=== PATIENT | female | born 1985 | race Caucasian/White ===

== ENCOUNTER 2018-10-14 10:13 | Inpatient (IN) | payer OTHER ==
[2018-10-09 14:35] VITALS: BMI 40.4
[~2018-10-14 10:13] MED LIST: ONDANSETRON 4 MG/2 ML VIAL IVPUSH PRN
[2018-10-14] MEDS ORDERED: DEXAMETHASONE SOD PHOSPHATE/PF 10 MG/ML SDV ONE ×2 (11:45→11:55)
[2018-10-14] MEDS ORDERED: BUPIVACAINE HCL/PF (5 MG/ML) 30 ML VIAL IJ ONE (11:46)
[2018-10-14] MEDS ORDERED: MIDAZOLAM HCL 2 MG/2 ML SINGLE DOSE VIAL ONE (11:46)
[2018-10-14] MEDS ORDERED: ROCURONIUM BROMIDE 50 MG/5 ML VIAL ONE (12:27)
[2018-10-14] MEDS ORDERED: PROPOFOL 20 ML ONE (12:27)
[2018-10-14] MEDS ORDERED: BUPIVACAINE HCL/PF 2.5 MG/ML - 30 ML VIAL IJ ONE (12:28)
[2018-10-14] MEDS ORDERED: fentaNYL CITRATE 250 MCG/5 ML VIAL ONE (12:30)
[2018-10-14] MEDS ORDERED: LIDOCAINE HCL/PF 2% SDV 5ML VIAL ONE (12:31)
[2018-10-14] MEDS ORDERED: ONDANSETRON 4 MG/2 ML VIAL ONE (12:32)
[2018-10-14] MEDS ORDERED: ceFAZolin SODIUM 1 GM VIAL ONE (12:32)
[2018-10-14] MEDS ORDERED: KETOROLAC TROMETHAMINE 30 MG/1 ML VIAL ONE (12:32)
[2018-10-14] MEDS ORDERED: DEXAMETHASONE SOD PHOSPHATE 4 MG/1 ML VIAL ONE (12:32)
--- NOTE | 2018-10-14 12:54 | HP ---
Admitting History and Physical - Admission Chief Complaint: Morbid obesity History Source: Patient Limitations to Obtaining History: No Limitations - Past Medical History ...LMP: 09/12/18 ...: No - Smoking History Smoking history: Never smoked Have you smoked in the past 12 months: No - Alcohol/Substance Use Hx Alcohol Use: No Home Medications - Allergies Allergies/Adverse Reactions: Allergies Allergy/AdvReac Type Severity Reaction Status Date / Time No Known Allergies Allergy Verified 10/14/18 10:34 - Home Medications Home Medications: Ambulatory Orders Multivitamin [One-Daily Multi-Vitamin] 1 each PO DAILY 10/09/18 Docusate Sodium [Colace -] 100 mg PO TID #90 capsule 10/14/18 Famotidine [Pepcid] 20 mg PO BID #60 tablet 10/14/18 Ondansetron [Zofran -] 8 mg PO Q6H PRN #30 tablet 10/14/18 Oxycodone HCl/Acetaminophen [Percocet 5-325 mg Tablet] 1 - 2 tab PO Q6H #28 tab MDD 4 10/14/18 Family Disease History - Family Disease History Family History: Unremarkable Review of Systems - Review of Systems Constitutional: denies: Chills, Fever Neck: reports: No Symptoms Cardiovascular: reports: No Symptoms Respiratory: reports: No Symptoms Gastrointestinal: reports: No Symptoms Neurological: reports: No Symptoms Pain Intensity: 0 Physical Examination Vital Signs: Vital Signs Temperature 98 F 10/14/18 10:58 Pulse Rate 85 10/14/18 10:58 Respiratory Rate 17 10/14/18 10:58 Blood Pressure 120/79 10/14/18 10:58 O2 Sat by Pulse Oximetry (%) Constitutional: Yes: Calm Neck: Yes: WNL Cardiovascular: Yes: WNL Respiratory: Yes: Regular Gastrointestinal: Yes: Soft, Abdomen, Obese Neurological: Yes: Alert, Oriented Problem List - Problems (1) Morbid obesity due to excess calories Code(s): E66.01 - MORBID (SEVERE) OBESITY DUE TO EXCESS CALORIES (2) BMI 40.0-44.9, adult Code(s): Z68.41 - BODY MASS INDEX (BMI) 40.0-44.9, ADULT Assessment/Plan Laparoscopic possible open vertical sleeve gastrectomy, possible liver biopsy, upper endoscopy
[2018-10-14] MEDS ORDERED: HYDROmorphone HCL/PF 1 MG/ML AMP ONE (13:29)
[2018-10-14] MEDS ORDERED: NEOSTIGMINE METHYLSULFATE 0.5 MG/ML - 10 ML MDV ONE (14:30)
[2018-10-14] MEDS ORDERED: GLYCOPYRROLATE 0.2 MG/1 ML VIAL ONE (14:31)
--- NOTE | 2018-10-14 14:42 | OP ---
Operative Note - Note: Operative Date: 10/14/18 Pre-Operative Diagnosis: Morbid obesity Operation: Diagnostic laparoscopy. Laparoscopic vertical sleeve gastrectomy. Laparoscopic wedge liver biopsy Post-Operative Diagnosis: Same as Pre-op (as well as hepatomegaly) Surgeon: Pranay Hinojosa Personal Fitness Manager: Mustapha Waldrop Anesthesia: General Specimens Removed: Greater curvature of stomach. Liver biopsy Estimated Blood Loss (mls): 50 Drains & Tubes with Location: 36 fr bougie Operative Report Dictated: Yes
[2018-10-14] MEDS: ACETAMINOPHEN 1000 MG/100 ML VIAL (NON FORMULARY) IVPB SCH ×3 (14:50→21:42)
[2018-10-14] MEDS: METOCLOPRAMIDE HCL INJECTION 10 MG/2 ML VIAL IVPUSH SCH ×3 (14:55→21:44)
[2018-10-14] MEDS ORDERED: ACETAMINOPHEN 1000 MG/100 ML VIAL (NON FORMULARY) IVPB ONE (15:00)
[2018-10-14 15:17] LABS: HEMATOCRIT 38.8 % (32.4-45.2); HEMOGLOBIN 12.9 GM/dl (10.7-15.3); MCH 29.7 pg (25.7-33.7); MCHC 33.2 g/dl (32.0-36.0); MEAN CELL VOLUME 89.4 fl (80-96); MEAN PLT VOLUME 8.4 fl (7.5-11.1); PLATELET COUNT 362 K/MM3 (134-434); RBC 4.34 M/mm3 (3.60-5.2); RDW 13.4 % (11.6-15.6); WHITE BLOOD COUNT 19.5 K/mm3 (4.0-10.8)
[2018-10-14 15:22] LABS: ALBUMIN 3.8 g/dl (3.4-5.0); BILIRUBIN,TOTAL 0.5 mg/dl (0.2-1); CREATININE 0.7 mg/dl (0.55-1.3); POTASSIUM 4.3 mmol/L (3.5-5.1); TOT PROT 7.6 g/dl (6.4-8.2)
[2018-10-14] MEDS: SODIUM CHLORIDE 1,000 ML IV SCH (16:00)
[2018-10-14] MEDS: ONDANSETRON 4 MG/2 ML VIAL IVPUSH SCH ×3 (16:37→21:44)
[2018-10-14] MEDS: FAMOTIDINE 20 MG/50 ML IVPB 20 MG/50 ML MG IVPB SCH ×2 (17:43→21:43)
--- NOTE | 2018-10-14 17:51 | CONSULT ---
Consult Consult Specialty:: IM Reason for Consultation:: post-op medical care - History Source History Provided By: Patient Limitations to Obtaining History: No Limitations - Past Medical History ...LMP: 09/12/18 ...: No - Alcohol/Substance Use Hx Alcohol Use: No - Smoking History Smoking history: Never smoked Have you smoked in the past 12 months: No Home Medications - Allergies Allergies/Adverse Reactions: Allergies Allergy/AdvReac Type Severity Reaction Status Date / Time No Known Allergies Allergy Verified 10/14/18 10:34 - Home Medications Home Medications: Ambulatory Orders Multivitamin [One-Daily Multi-Vitamin] 1 each PO DAILY 10/09/18 Docusate Sodium [Colace -] 100 mg PO TID #90 capsule 10/14/18 Famotidine [Pepcid] 20 mg PO BID #60 tablet 10/14/18 Ondansetron [Zofran -] 8 mg PO Q6H PRN #30 tablet 10/14/18 Oxycodone HCl/Acetaminophen [Percocet 5-325 mg Tablet] 1 - 2 tab PO Q6H #28 tab MDD 4 10/14/18 Review of Systems - Review of Systems Constitutional: reports: Weakness Eyes: reports: No Symptoms HENT: reports: No Symptoms Neck: reports: No Symptoms Cardiovascular: reports: No Symptoms Respiratory: reports: No Symptoms Gastrointestinal: reports: Indigestion Musculoskeletal: reports: No Symptoms Integumentary: reports: No Symptoms Neurological: reports: No Symptoms Endocrine: reports: No Symptoms Hematology/Lymphatic: reports: No Symptoms Psychiatric: reports: No Symptoms Pain Intensity: 4 Physical Exam Vital Signs: Vital Signs Temperature 97.8 F 10/14/18 16:00 Pulse Rate 97 H 10/14/18 16:00 Respiratory Rate 18 10/14/18 16:30 Blood Pressure 131/80 10/14/18 16:00 O2 Sat by Pulse Oximetry (%) 100 10/14/18 16:30 Constitutional: Yes: Obese Eyes: Yes: WNL HENT: Yes: WNL Neck: Yes: WNL Cardiovascular: Yes: WNL Respiratory: Yes: WNL Gastrointestinal: Yes: WNL Renal/: Yes: WNL Musculoskeletal: Yes: WNL Extremities: Yes: WNL Edema: No Peripheral Pulses WNL: Yes Integumentary: Yes: WNL Neurological: Yes: WNL ...Motor Strength: WNL Psychiatric: Yes: WNL Labs: CBC, BMP 10/14/18 15:00 10/14/18 15:00 Assessment/Plan 33 yo lady S/PDiagnostic laparoscopy. Laparoscopic vertical sleeve gastrectomy. Laparoscopic wedge liver biopsy POD#0. pain management. incentive spirometry. -blood work reviewed. post-op reactive leucocytosis. will monitor. -hyponatremia, low anion-gap. due to reduced oral intake. no intervention for now. -OOB as tolerated -NPO, IV fluids -for GI series tomorrow. -DC home planned for tomorrow if no complications.
[2018-10-14] MEDS: HYDROmorphone HCl 2 MG/ML VIAL IVPB PRN (18:48)
[2018-10-14] MEDS: ENOXAPARIN NA (PORCINE) 40 MG/0.4 ML DISP.SYRIN SQ SCH (21:44)
--- NOTE | 2018-10-14 22:11 | SPEC ---
DATE OF OPERATION: 10/14/2018 PLACE OF SURGERY: [facility], [place], [address] [place] [address] SURGEON: Pranay Hinojosa MD MOLD MOVER: Mustapha Waldrop MD PREOPERATIVE DIAGNOSES: 1. Morbid obesity. 2. Body mass index of 40.4. POSTOPERATIVE DIAGNOSES: 1. Morbid obesity. 2. Body mass index of 40.4. 3. Hepatomegaly. PROCEDURE: 1. Diagnostic laparoscopy. 2. Laparoscopic vertical sleeve gastrectomy. 3. Laparoscopic wedge liver biopsy. SPECIMEN: 1. Greater curvature of the stomach. 2. Liver biopsy. ESTIMATED BLOOD LOSS: 50 mL. DRAINS: None. ANESTHESIA: GET. BOUGIE: Size 36-Sudanese. REASON FOR PROCEDURE: This is a 33-year-old female who presented for weight loss options. After describing different options, she decided to proceed with laparoscopic, possible open vertical sleeve gastrectomy, possible liver biopsy, upper endoscopy. RISKS AND BENEFITS: After describing the different options for weight loss management, the patient decided to proceed with a laparoscopic, possible open vertical sleeve gastrectomy. The patient was seen by the respective subspecialties and cleared for surgery. The risks and benefits of the procedure were explained. These included bleeding, infection, hernia, ME, DVT, PE, injury to surrounding structures including the liver, colon, bowel, spleen, esophagus, vessel injury, nerve injury, weight regain, gastric leak, staple line leak, sleeve leak, obstruction, vitamin deficiency, hair loss and as some of the possible complications. The patient understood and signed informed consent. DESCRIPTION OF PROCEDURE: The patient was placed supine on the operating room table. The patient underwent general endotracheal intubation. The arms were brought out at 90 degrees and secured. A footboard was placed and the legs were secured laterally with padding. The abdomen was prepped and draped in the usual sterile fashion. A timeout was performed. An incision was made in the left upper quadrant and a Veress needle inserted. Pneumoperitoneum was established. Subsequently, the Veress needle was removed and a 5-mm trocar was placed under direct visualization with the laparoscope. The laparoscopic camera was then inserted and inspection of the abdominal cavity was performed. An incision was then made in the supraumbilical area and a 15-mm trocar was placed under direct visualization. A 5-mm trocar was then placed in the right upper quadrant and a 5-mm trocar was placed below the left subcostal margin. A stab wound was made in the subxiphoid area and a Cassandra clamp inserted and removed to dilate the tract. A Citlaly liver retractor was inserted. The post was secured at the bedside by the nursing staff. The patient was placed in steep reverse Trendelenburg position and the Citlaly liver retractor was used to secure the liver towards the anterior abdominal wall. The pylorus was identified and 6 cm proximal to it, the lesser sac was entered using the LigaSure device. All lateral attachments to the greater curvature of the stomach, including the short gastric vessels, were ligated using the LigaSure device toward the gastrosplenic and gastrophrenic ligaments. Once this was done in its entirety, it was confirmed that all tubes within the nasal or oropharyngeal cavity, including a temperature probe were removed by Anesthesia. The bougie was then inserted by Anesthesia. Transection of the stomach was then begun staying adjacent to the bougie but away from the angularis. Transection of the stomach was performed near the portion of the stomach where the lesser sac was entered. Two laparoscopic Endo-KERON black kenny were used at this location. Laparoscopic Endo KERON purple staple loads were then used for the remainder of the transection until the greater curvature of the stomach was fully transected. This was done staying close to the bougie. Care was taken to stay away from the angle of His cephalad. The staple line was then inspected. Hemostasis was identified. A leak test was then performed. It was clamped distally to the staple line. Irrigation solution was placed in the left upper quadrant and air was insufflated by Anesthesia into the sleeve. No leaks were identified. No obstruction was identified. This was done through the entirety of the staple line. The stomach was suctioned and the bougie removed fully intact under direct visualization. At this point, the irrigation solution was suctioned and again, hemostasis was noted. A wedge liver biopsy was then performed. The left lobe of the liver was identified. A portion of the edge of the left lobe of the liver was grasped. Using electrocautery, a wedge of the left liver was excised. The specimen was removed and sent off the field. Hemostasis of the wedge liver biopsy site was attained and noted using electrocautery. The 15-mm supraumbilical trocar was then removed and the greater curvature specimen removed from the site using a sponge stick ramsay. A Dontae-Mariel device was then used to close the fascia with a 0 Vicryl suture at the site. Again, hemostasis was noted. The Citlaly liver retractor was then removed under direct visualization. Pneumoperitoneum was desufflated. Hemostasis was noted at all incision sites and Marcaine was injected at all incision sites. A 3-0 Vicryl suture was used to close the deep subcutaneous tissue at the 15-mm incision site. All incision sites were closed using 4-0 Biosyn. Sterile dressings were applied. The patient tolerated the procedure well and was transferred to the recovery room in stable condition. Tiffani [id number]
[2018-10-15] MEDS: HYDROmorphone HCl 2 MG/ML VIAL IVPB PRN ×3 (01:32→15:31)
[2018-10-15] MEDS: METOCLOPRAMIDE HCL INJECTION 10 MG/2 ML VIAL IVPUSH SCH ×3 (03:17→15:32)
[2018-10-15] MEDS: ACETAMINOPHEN 1000 MG/100 ML VIAL (NON FORMULARY) IVPB SCH ×2 (03:17→08:10)
[2018-10-15] MEDS: ONDANSETRON 4 MG/2 ML VIAL IVPUSH SCH ×4 (03:17→15:32)
[2018-10-15 07:56] LABS: HEMATOCRIT 38.2 % (32.4-45.2); HEMOGLOBIN 12.5 GM/dl (10.7-15.3); MCH 29.4 pg (25.7-33.7); MCHC 32.8 g/dl (32.0-36.0); MEAN CELL VOLUME 89.6 fl (80-96); MEAN PLT VOLUME 8.9 fl (7.5-11.1); PLATELET COUNT 387 K/MM3 (134-434); RBC 4.26 M/mm3 (3.60-5.2); RDW 13.4 % (11.6-15.6)
[2018-10-15] MEDS: LACTATED RINGERS SOLUTION 1,000 ML IV SCH ×2 (08:36→09:58)
[2018-10-15 08:44] LABS: ALBUMIN 3.4 g/dl (3.4-5.0); BILIRUBIN,TOTAL 0.5 mg/dl (0.2-1); CALCIUM 8.6 mg/dl (8.5-10); CREATININE 0.7 mg/dl (0.55-1.3); POTASSIUM 4.3 mmol/L (3.5-5.1)
[2018-10-15] MEDS: FAMOTIDINE 20 MG/50 ML IVPB 20 MG/50 ML MG IVPB SCH (09:57)
[2018-10-15] MEDS: ENOXAPARIN NA (PORCINE) 40 MG/0.4 ML DISP.SYRIN SQ SCH (09:58)
--- NOTE | 2018-10-15 10:53 | PN ---
Progress Note, Physician Chief Complaint: 33 yo lady S/PDiagnostic laparoscopy. Laparoscopic vertical sleeve gastrectomy. Laparoscopic wedge liver biopsy POD#1 denies chest pain, palpitations, nausea, vomiting, diarrhea. - Current Medication List Current Medications: Active Medications Enoxaparin Sodium (Lovenox -) 40 mg SQ BID [facility] Last Admin: 10/15/18 09:58 Dose: 40 mg Fentanyl (Sublimaze Injection -) 50 mcg IVPUSH [id number] PRN PRN Reason: PAIN-PACU ORDER X 4 DOSES ONLY Last Admin: 10/14/18 15:20 Dose: 50 mcg Hydromorphone HCl (Dilaudid Vial -) 1 mg IVPB Q3H PRN PRN Reason: PAIN LEVEL 4 - 6 Last Admin: 10/15/18 08:35 Dose: 1 mg Lactated Ringer's (Lactated Ringers Solution) 1,000 mls @ 75 mls/hr IV ASDIR [facility] Last Admin: 10/15/18 09:58 Dose: 75 mls/hr Famotidine/Sodium Chloride (Pepcid 20 Mg Premixed Ivpb -) 20 mg in 50 mls @ 100 mls/hr IVPB BID [facility] Last Admin: 10/15/18 09:57 Dose: 100 mls/hr Sodium Chloride (Normal Saline -) 1,000 mls @ 150 mls/hr IV ASDIR [facility] Last Admin: 10/14/18 16:00 Dose: Not Given Metoclopramide HCl (Reglan Injection -) 10 mg IVPUSH Q6H [facility] Last Admin: 10/15/18 08:10 Dose: 10 mg Ondansetron HCl (Zofran Injection) 4 mg IVPUSH Q6H PRN PRN Reason: NAUSEA AND/OR VOMITING Ondansetron HCl (Zofran Injection) 4 mg IVPUSH Q4H [facility] Last Admin: 10/15/18 09:58 Dose: 4 mg - Objective Vital Signs: Vital Signs Temperature 98.6 F 10/15/18 09:49 Pulse Rate 93 H 10/15/18 09:49 Respiratory Rate 18 10/15/18 09:49 Blood Pressure 102/62 10/15/18 09:49 O2 Sat by Pulse Oximetry (%) 97 10/15/18 09:49 Constitutional: Yes: Obese Eyes: Yes: WNL HENT: Yes: WNL Neck: Yes: WNL Cardiovascular: Yes: WNL Respiratory: Yes: WNL Gastrointestinal: Yes: WNL Genitourinary: Yes: WNL Musculoskeletal: Yes: WNL Extremities: Yes: WNL Edema: No Peripheral Pulses WNL: Yes Integumentary: Yes: WNL Neurological: Yes: WNL ...Motor Strength: WNL Psychiatric: Yes: WNL Labs: CBC, BMP 10/15/18 07:09 10/15/18 07:09 Assessment/Plan 33 yo lady S/PDiagnostic laparoscopy. Laparoscopic vertical sleeve gastrectomy. Laparoscopic wedge liver biopsy POD#1. pain management. incentive spirometry. -blood work reviewed. post-op reactive leucocytosis. will monitor. -hyponatremia, low anion-gap. due to reduced oral intake. no intervention for now. -OOB as tolerated -for GI series today -DC home planned for later today after testing is done. Pt is medically cleared for DC
[2018-10-15 12:16] LABS: EOS % 0.1 % (0-4.5); HEMOGLOBIN 11.9 GM/dl (10.7-15.3)
[2018-10-15 12:20] LABS: BASO % 1.5 % (0-2.0); HEMATOCRIT 34.8 % (32.4-45.2); LYMPH % 14.8 % (8-40); MCH 30.4 pg (25.7-33.7); MCHC 34.1 g/dl (32.0-36.0); MEAN CELL VOLUME 89.1 fl (80-96); MEAN PLT VOLUME 8.1 fl (7.5-11.1); MONO % 8.1 % (3.8-10.2); NEUT % 75.5 % (42.8-82.8); PLATELET COUNT 362 K/MM3 (134-434); RDW 13.4 % (11.6-15.6); WHITE BLOOD COUNT 17.2 K/mm3 (4.0-10.8)
[2018-10-15] MEDS ORDERED: oxyCODONE HCL 5 MG TABLET PO PRN (13:20)
--- NOTE | 2018-10-15 13:21 | PN ---
Progress Note (short form) - Note Progress Note: POD 1 No nausea Pain controlled Vital Signs Period Temp Pulse Resp BP Sys/Hopson Pulse Ox Last 24 Hr 97.8 F-99.5 F 78-107 11-19 99-154/38-87 97-100 Abd soft CBC,CMP WBC 17.2 K/mm3 (4.0-10.8) H 10/15/18 12:08 RBC 3.90 M/mm3 (3.60-5.2) 10/15/18 12:08 Hgb 11.9 GM/dl (10.7-15.3) 10/15/18 12:08 Hct 34.8 % (32.4-45.2) 10/15/18 12:08 MCV 89.1 fl (80-96) 10/15/18 12:08 MCH 30.4 pg (25.7-33.7) 10/15/18 12:08 MCHC 34.1 g/dl (32.0-36.0) 10/15/18 12:08 RDW 13.4 % (11.6-15.6) 10/15/18 12:08 Plt Count 362 K/MM3 (134-434) 10/15/18 12:08 MPV 8.1 fl (7.5-11.1) 10/15/18 12:08 Absolute Neuts (auto) 13.0 K/mm3 10/15/18 12:08 Neutrophils % 75.5 % (42.8-82.8) 10/15/18 12:08 Lymphocytes % 14.8 % (8-40) 10/15/18 12:08 Monocytes % 8.1 % (3.8-10.2) 10/15/18 12:08 Eosinophils % 0.1 % (0-4.5) 10/15/18 12:08 Basophils % 1.5 % (0-2.0) 10/15/18 12:08 Sodium 135 mmol/L (136-145) L 10/15/18 07:09 Potassium 4.3 mmol/L (3.5-5.1) 10/15/18 07:09 Chloride 102 mmol/L (98-107) 10/15/18 07:09 Carbon Dioxide 25 mmol/L (21-32) 10/15/18 07:09 Anion Gap 8 MMOL/L (8-16) 10/15/18 07:09 BUN 12.0 mg/dl (7-18) 10/15/18 07:09 Creatinine 0.7 mg/dl (0.55-1.3) 10/15/18 07:09 Est GFR (CKD-EPI)AfAm 131.02 10/15/18 07:09 Est GFR (CKD-EPI)NonAf 113.04 10/15/18 07:09 Random Glucose 119 mg/dl (74-106) H 10/15/18 07:09 Calcium 8.6 mg/dl (8.5-10) 10/15/18 07:09 Total Bilirubin 0.5 mg/dl (0.2-1) 10/15/18 07:09 AST 67 U/L (15-37) H 10/15/18 07:09 ALT 75 U/L (13-61) H 10/15/18 07:09 Alkaline Phosphatase 75 U/L (45-117) 10/15/18 07:09 Total Protein 7.0 g/dl (6.4-8.2) 10/15/18 07:09 Albumin 3.4 g/dl (3.4-5.0) 10/15/18 07:09 UGI: no leak/obstruction Clears Discharge home Problem List - Problems (1) Morbid obesity due to excess calories Code(s): E66.01 - MORBID (SEVERE) OBESITY DUE TO EXCESS CALORIES (2) BMI 40.0-44.9, adult Code(s): Z68.41 - BODY MASS INDEX (BMI) 40.0-44.9, ADULT
[2018-10-15] MEDS ORDERED: SODIUM CHLORIDE 1,000 ML IV SCH (13:30)
[2018-10-15 14:14] VITALS: BP 129/87; PULSE 89; TEMP 98.7
[2018-10-15] MEDS: SODIUM CHLORIDE 1,000 ML IV SCH (15:32)
--- NOTE | 2018-10-17 10:48 | PATH ---
Surgical Pathology Report Patient Name: LOREE HA Med. Rec. #: [id number] /Age/Gender: 1985 (Age: 33) / F Account: [id number] Location: [facility] Taken: 10/14/2018 Received: 10/14/2018 Reported: 10/17/2018 Physicians: Pranay Hinojosa M.D. Specimen(s) Received A: GREATER CURVATURE OF STOMACH B: LIVER BIOPSY Clinical History Morbid obesity Final Diagnosis A. GREATER CURVATURE, STOMACH, LAPAROSCOPIC GASTRIC SLEEVE EXCISION: PORTION OF STOMACH WITH NO PATHOLOGIC FINDINGS. IMMUNOSTAIN IS NEGATIVE FOR H. PYLORI ORGANISMS. B. LIVER, BIOPSY: LIVER SHOWING MINIMAL STEATOSIS (< 5%). TRICHROME STAIN SHOWS NO APPRECIABLE INCREASE IN FIBROSIS. IRON STAIN SHOWS NO INCREASE IN IRON DEPOSITS. Electronically Signed Nichole Canela M.D. Gross Description A. Received in formalin, labeled "greater curvature the stomach," is a 76 gram, 16.0 x 2.8 x 2.8 cm. portion of stomach with a stapled margin of resection. The serosa is ivy-perez with minimal attached fat. The mucosa is ivy-pink with normal folds. No mucosal masses are identified. Burr Picker sections are submitted in one cassette. B. Received in formalin labeled "liver biopsy," is a 3.2 x 1.3 x 1.3 cm ivy portion of soft tissue, consistent with liver. The specimen is sectioned and senior outside sales representative sections are submitted in one cassette. /10/15/2018 saudi10/15/2018
== END 2018-10-15 16:18 | disposition home or self-care (01) | DRG 620 ==
LOC: FM/S 10:13
PROVIDERS: ADMIT Surgery; ATTEND Surgery
PROC: 0WJP4ZZ Inspection of Gastrointestinal Tract, Percutaneous Endoscopic Approach (ICD-10-PCS; 2018-10-14)
PROC: 0DB64Z3 Excision of Stomach, Percutaneous Endoscopic Approach, Vertical (ICD-10-PCS; principal; 2018-10-14 13:19)
PROC: 0FB24ZX Excision of Left Lobe Liver, Percutaneous Endoscopic Approach, Diagnostic (ICD-10-PCS; 2018-10-14 13:19)
DX: E66.01 Morbid (severe) obesity due to excess calories (principal); E87.1 Hypo-osmolality and hyponatremia; Z68.41 Body mass index [BMI] 40.0-44.9, adult; R16.0 Hepatomegaly, not elsewhere classified
CPT/HCPCS: 36415; 74241-TC-FY; 80053; 84703; 85025; 85027; 88305-TC; 88313-TC; 94760; J0131; J7030